=== PATIENT | male | born 1975 | race Caucasian/White ===

== ENCOUNTER 2020-05-23 10:47 | Emergency (ER) | payer SELFPAY ==
[2020-05-23 10:55] VITALS: BP 148/89; PULSE 71; TEMP 98.5; BMI 25.8
[2020-05-23] MEDS ORDERED: DIPHTH,PERTUSS(ACELL),TET 0.5 ML DISP.SYRIN IM ONE ×2 (11:40→11:45)
--- NOTE | 2020-05-23 13:26 | PDOC ---
History of Present Illness - General Chief Complaint: Laceration Stated Complaint: RT. ARM LAC. Time Seen by Provider: 05/23/20 11:09 History Source: Patient Exam Limitations: No Limitations Past History - Medical History Allergies/Adverse Reactions: Allergies Allergy/AdvReac Type Severity Reaction Status Date / Time No Known Allergies Allergy Unverified 05/23/20 10:55 Home Medications: Ambulatory Orders Acetaminophen [Tylenol -] 500 mg PO Q4H #30 tablet 05/23/20 Cephalexin Monohydrate [Keflex -] 500 mg PO BID #14 capsule 05/23/20 COPD: No - Psycho-Social/Smoking History Smoking History: Never smoked Have you smoked in the past 12 months: No Information on smoking cessation initiated: No - Substance Abuse Hx (Audit-C & DAST Scrn) How often the patient has a drink containing alcohol: Monthly or less Number of drinks the patient has on a typical day: 1 or 2 How often the patient has six or more drinks on one occasion: Never Score: In Men: 4 or > Positive; In Women: 3 or > Positive: 1 Screen Result (Pos requires Nsg. Audit-10AR): Negative In the last yr the pt used illegal drug/Rx for NonMed reason: No Score: Yes response is considered Positive: 0 Screen Result (Positive result requires Nsg. DAST-10): Negative Review of Systems - Review of Systems Able to Perform ROS?: Yes Comments:: 05/23/20 14:49 CONSTITUTIONAL: Absent: fever, chills, diaphoresis, generalized weakness, malaise, loss of appetite MUSCULOSKELETAL: Absent: myalgia, arthralgia, joint swelling SKIN: Present: laceration Absent: rash, itching, pallor NEUROLOGIC: Absent: headache, focal weakness or paresthesias, dizziness, unsteady gait, seizure, mental status changes, bladder or bowel incontinence PSYCHIATRIC: Absent: anxiety, depression, suicidal or homicidal ideation, hallucinations. Is the patient limited [place] proficient: No *Physical Exam - Vital Signs Last Vital Signs Temp Pulse Resp BP Pulse Ox 98.5 F 71 17 148/89 98 05/23/20 10:52 05/23/20 10:52 05/23/20 10:52 05/23/20 10:52 05/23/20 10:52 - Physical Exam 05/23/20 19:50 GENERAL: The patient is awake, alert, and fully oriented, in no acute distress. HEAD: Normal with no signs of trauma. EYES: Pupils equal, round and reactive to light, extraocular movements intact, sclera anicteric, conjunctiva clear. EXTREMITIES: FROM to the R wrist with full flexion and extension. No sensation deficit to the R forearm/hand. Normal range of motion, no edema. NEUROLOGICAL: Normal speech, normal gait. PSYCH: Normal mood, normal affect. SKIN: 3cm laceration to the ventral R distal forearm with flexor tendon exposure. Partial tendon involvement without obvious rupture. Manual manipulation of the tendon Warm, Dry, normal turgor, no rashes or lesions noted. Procedures - Laceration/Wound Repair Right Distal Volar Arm Wound Length: 2.6 to 5.0 cm Wound Explored: clean, no foreign body present Wound's Depth, Shape: into muscle Irrigated w/ Saline: Yes Betadine Prep: Yes Anesthesia: 1% Lidocaine Amount of Anesthetic (ccs): 10 Wound Repaired With: Sutures Suture Size/Type: 3:0 Number of Sutures: 3 (Horizontal Mattress) Layer Closure: No Sterile Dressing Applied: Yes ED Treatment Course - RADIOLOGY Radiology Studies Ordered: Category Date Time Status FOREARM- RIGHT [RAD] Stat Radiology 05/23/20 11:40 Taken - Medications Given in the ED: ED Medications Discontinued Medications Generic Name Dose Route Start Last Admin Trade Name Alfredoq PRN Reason Stop Dose Admin Diphtheria/Tetanus/Acell Pertussis 0.5 ml 05/23/20 11:40 05/23/20 11:44 Boostrix - IM 05/23/20 11:41 0.5 ml .ONCE ONE Administration Medical Decision Making - Medical Decision Making 05/23/20 15:02 The patient is a 44-year-old male no past medical history, presents to the ER today for a laceration sustained to his right forearm. The patient is right- hand dominant. He states he was at work using a tile cutter when he slipped and cut his right forearm. He does not member the date of his last tetanus shot. Denies numbness and tingling and weakness in the affected extremity. He states he is able to move all his fingers. A/P: Right arm laceration See exam findings. Tetanus updated. Partial flexor tendon exposure without obvious rupture. Wound was copiously irrigated with 500 cc of normal saline under high-pressure. Clot evacuated from the forearm. 3 horizontal mattress sutures placed for primary closure. Given depth and involvement of wound, patient placed on Keflex. Orthopedics consulted. Spoke with ZION Farrell to set up follow-up given partial tendon involvement. States that they will see in Dr. Cloud's office tomorrow pending if the office has regained power. Advised the patient if he is unable to follow-up with orthopedics by Wednesday to return to the ER for a wound check. Patient understands follow-up instructions. Discharge - Discharge Information Problems reviewed: Yes Clinical Impression/Diagnosis: Arm laceration Qualifiers: Encounter type: initial encounter Laterality: right Qualified Code(s): S41.111A - Laceration without foreign body of right upper arm, initial encounter Condition: Stable Disposition: HOME - Admission No - Additional Discharge Information Prescriptions: Cephalexin Monohydrate [Keflex -] 500 mg PO BID #14 capsule Acetaminophen [Tylenol -] 500 mg PO Q4H #30 tablet - Follow up/Referral Referrals: Iirneo Cloud MD [Staff Physician] - - Patient Discharge Instructions Patient Printed Discharge Instructions: DI for Laceration Repair Additional Instructions: Discharge Instructions: You were seen in the emergency department for a laceration repair; you have 3 stitches in your R forearm. Home Care: - You should avoid getting the wound wet for at least 24 hours. After 24hrs, you may wash your arm and shower normally. It is OK to use a plain soap and allow water to run over the wound. Do not scrub at the wound, and pat dry after washing. Do not rub with a towel. - After 24hrs you may remove the bandage and leave the wound open to air. - Do not apply any lotions, ointments, creams or other topical medications to the wound - Some redness and swelling is expected after an injury. You may see a small amount of bleeding or pinkish drainage on the bandage when you remove it. This is normal. - You may use acetaminophen (Tylenol) or ibuprofen (Advil, Motrin) as needed for pain. Please follow the directions on the bottle for dosing information. -Take the Keflex as directed to prevent infection -Your tetanus shot was updated today. Follow Up: - Call Dr. Cloud's office when you leave here today to schedule an appointment. You need to follow up with them in 24-48 hours. - You need to have the stitches removed in 7-10 days - You can return to the emergency room/an urgent care or see your regular doctor. - Seek immediate medical care if your wound becomes significantly more painful, swollen, red, you have a large amount of thick drainage, you have fevers to 101F or higher, or you have red streaking from the wound. es in your symptoms. Instrucciones de descarga: Fue visto en el departamento de emergencias para gil reparacin de laceracin; tiene 3 puntos de sutura en el antebrazo R. Cuidado en el hogar: - Debe evitar mojar la herida darrell al menos 24 horas. Despus de 24 horas, puede lavarse el brazo y ducharse con normalidad. Est anurag usar un jabn simple y permitir que el agua corra sobre la herida. No frote la herida y seque con palmaditas despus del lavado. No frote con gil toalla. - Despus de 24 horas puede quitar el vendaje y dejar la herida abierta al aire. - No aplique lociones, pomadas, cremas u otros medicamentos tpicos a la herida - Se espera algo de enrojecimiento e hinchazn despus de gil lesin. Es posible que veas gil pequea cantidad de sangrado o drenaje solis en el vendaje cuando lo extraigas. [place] es normal. - Puede usar paracetamol (Tylenol) o ibuprofeno (Advil, Motrin) segn sea necesario para el dolor. Por favor, siga las instrucciones de la botella para obtener informacin de dosificacin. -[place] el Keflex rudi se indica para prevenir la infeccin -Mendoza vacuna contra el ttanos se actualiz hoy. Sigue: - Llame a la oficina del Dr. Cloud cuando salga de aqu hoy para programar gil bettina. Tienes que darles seguimiento en 24-48 horas. - Es necesario que se retiren los puntos en 7-10 [place] - Puede volver a la candelaria de emergencias/gil atencin de urgencia o consultar a mendoza mdico habitual. - Busque atencin mdica inmediata si mendoza herida se vuelve significativamente ms dolorosa, hinchada, kathryn, tiene gil gran cantidad de drenaje grueso, tiene fiebre a 101F o superior, o tiene tavia acosta de la herida. est en augustine snto mas. - Post Discharge Activity Work/Back to School Note: Back to Work
== END 2020-05-23 13:40 | disposition home or self-care (01) ==
LOC: JERFT 10:47
PROC: 0HQBXZZ Repair Right Upper Arm Skin, External Approach (ICD-10-PCS; principal; 2020-05-23)
PROC: 3E0234Z Introduction of Serum, Toxoid and Vaccine into Muscle, Percutaneous Approach (ICD-10-PCS; 2020-05-23)
DX: S41.111A Laceration without foreign body of right upper arm, initial encounter (principal)
CPT/HCPCS: 73090-TC-RT-FY; 90715; 99284-25

== ENCOUNTER 2020-05-27 10:42 | Emergency (ER) | payer SELFPAY ==
[2020-05-27 10:52] VITALS: BMI 25.8
--- NOTE | 2020-05-27 11:15 | PDOC ---
History of Present Illness - General Chief Complaint: Revisit,Wound Recheck Stated Complaint: RT FOREARM INJURY Time Seen by Provider: 05/27/20 10:59 - History of Present Illness Initial Comments: 05/27/20 11:09 44-year-old male presents for wound check he has mild wrist stiffness otherwise no sequelae since suture placement of his right distal forearm Past History - Medical History Allergies/Adverse Reactions: Allergies Allergy/AdvReac Type Severity Reaction Status Date / Time No Known Allergies Allergy Verified 05/27/20 10:47 Home Medications: Ambulatory Orders Acetaminophen [Tylenol -] 500 mg PO Q4H #30 tablet 05/23/20 Cephalexin Monohydrate [Keflex -] 500 mg PO BID #14 capsule 05/23/20 COPD: No - Psycho-Social/Smoking History Smoking History: Never smoked Have you smoked in the past 12 months: No - Substance Abuse Hx (Audit-C & DAST Scrn) How often the patient has a drink containing alcohol: Never Score: In Men: 4 or > Positive; In Women: 3 or > Positive: 0 Screen Result (Pos requires Nsg. Audit-10AR): Negative In the last yr the pt used illegal drug/Rx for NonMed reason: No Score: Yes response is considered Positive: 0 Screen Result (Positive result requires Nsg. DAST-10): Negative Review of Systems - Review of Systems Constitutional: No: Fever *Physical Exam - Vital Signs Last Vital Signs Temp Pulse Resp BP Pulse Ox 97.8 F 77 20 148/105 H 100 05/27/20 10:47 05/27/20 10:47 05/27/20 10:47 05/27/20 10:47 05/27/20 10:47 - Physical Exam 05/27/20 11:11 Right distal forearm sutures are in place the edges of the wound are mildly macerated surrounding skin color and temperature otherwise normal small swelling area around the wound. Upper extremity compartments are soft and nontender without gross sensorimotor deficits neurovascular intact Medical Decision Making - Medical Decision Making 05/27/20 11:11 Healing wound sutures are in good position edges are approximated recommended keeping the wound clean and dry without application of ointments washing with mild soap and water follow-up with orthopedic surgery for wound check and suture removal going forward. I have reviewed the pathophysiology with the patient. They are in agreement with the treatment plan all questions were answered to their satisfaction. Understanding for follow-up without fail was also conveyed to the patient. Again they are in agreement. Discharge - Discharge Information Problems reviewed: Yes Clinical Impression/Diagnosis: Visit for wound check Condition: Stable Disposition: HOME - Admission No - Follow up/Referral Referrals: Omar Dorado DO [Staff Physician] - - Patient Discharge Instructions Additional Instructions: Please keep your wound clean and dry. Wash it with soap and water. Do not apply any ointment such as bacitracin or Neosporin if you are working and out and about covered with a dry sterile dressing such as a large Band-Aid. Return to the emergency room for further issues and without fail follow-up with orthopedic surgery for a wound check and suture removal in 2 to 3 days for further evaluation and treatment options. You may return to the emergency room at any time for repeat wound check and suture removal when sutures are to be removed. - Post Discharge Activity
[2020-05-27 12:01] VITALS: BP 133/80; PULSE 89; TEMP 98.5
== END 2020-05-27 12:40 | disposition home or self-care (01) ==
LOC: JERFT 10:42
DX: Z48.89 Encounter for other specified surgical aftercare (principal)
CPT/HCPCS: 99281-25